=== PATIENT | female | born 1995 | race Caucasian/White ===

== ENCOUNTER 2017-09-08 14:28 | Emergency (ER) | payer BC ==
--- NOTE | 2017-09-08 14:36 | ER Report ---
History and Physical Time Seen By MD: 14:36 HPI/ROS CHIEF COMPLAINT: Back pain HISTORY OF PRESENT ILLNESS: Is is a 22-year-old female who presents to the emergency department for back pain secondary to a fall from a horse. Patient states that she was riding her horse fell off a horse landing on her right talked and injuring her back. Patient states it's very uncomfortable to sit on her tailbone, she also has some abrasions to the right lower back. No numbness or tingling no sciatica. No nausea or vomiting. No head injuries or loss of consciousness. No chest pain or shortness of breath. REVIEW OF SYSTEMS: Constitutional: No fever, no chills. Eyes: No discharge. ENT: No sore throat. Cardiovascular: No chest pain, no palpitations. Respiratory: No cough, no shortness of breath. Gastrointestinal: No abdominal pain, no vomiting. Genitourinary: No hematuria. Musculoskeletal: As above. Skin: As above. Neurological: No headache. Allergies: Coded Allergies: No Known Drug Allergies (Unverified , 09/08/17) Home Meds No Active Prescriptions or Reported Meds Past Medical/Surgical History The patient has a past medical and surgical history of appendectomy, wisdom teeth extraction. Reviewed Nurses Notes: Yes Constitutional Vital Sign - Last 24 Hours 09/08/17 09/08/17 09/08/17 14:36 17:51 17:56 Temp 98.4 Pulse 91 93 74 Resp 16 16 B/P (MAP) 143/84 129/77 (94) 120/70 (87) Pulse Ox 94 93 97 O2 Delivery Room Air Room Air Room Air Physical Exam General Appearance: The patient is alert, has no immediate need for airway protection and no signs of toxicity. Eyes: Pupils equal and round no pallor or injection. ENT, Mouth: Mucous membranes are moist. Respiratory: There are no retractions, lungs are clear to auscultation. Cardiovascular: Regular rate and rhythm. Gastrointestinal: Abdomen is soft and non tender, no masses, bowel sounds normal. Neurological: Alert and oriented 4. Moving all extremities. Following all commands. No focal neuro deficits. Skin: Abrasion and pain to the right lower back, no crepitus, obvious deformities or retroperitoneal bruising. Musculoskeletal: Neck is supple non tender. Extremities are nontender, nonswollen and have full range of motion. DIFFERENTIAL DIAGNOSIS: After history and physical exam differential diagnosis was considered for contusion, abrasion, compression fracture and coccyx fracture. Medical Decision Making Data Points Laboratory Hematology Test 09/08/17 14:58 Urine Color Straw Urine Clarity Clear Urine pH 6.0 pH (4.8-9.5) Urine Specific [place] 1.004 Urine Protein Negative mg/dL (NEGATIVE) Urine Glucose (UA) Negative mg/dL (NEGATIVE) Urine Ketones Negative mg/dL (NEGATIVE) Urine Blood Negative (NEGATIVE) Urine Nitrite Negative (NEGATIVE) Urine Bilirubin Negative (NEGATIVE) Urine Urobilinogen Negative mg/dL (0.2-1.9) Urine Leukocyte Esterase Negative (NEGATIVE) Urine RBC <1 /HPF (0-2/HPF) Urine WBC <1 /HPF (0-5/HPF) Urine Squamous Epithelial Cells Many /LPF (</=FEW) Urine Bacteria Few /HPF (NONE-FEW) Urine Mucus None /HPF (NONE-FEW) Urine HCG, Qualitative Negative (NEGATIVE) Chemistry Test 09/08/17 14:58 Urine Color Straw Urine Clarity Clear Urine pH 6.0 pH (4.8-9.5) Urine Specific [place] 1.004 Urine Protein Negative mg/dL (NEGATIVE) Urine Glucose (UA) Negative mg/dL (NEGATIVE) Urine Ketones Negative mg/dL (NEGATIVE) Urine Blood Negative (NEGATIVE) Urine Nitrite Negative (NEGATIVE) Urine Bilirubin Negative (NEGATIVE) Urine Urobilinogen Negative mg/dL (0.2-1.9) Urine Leukocyte Esterase Negative (NEGATIVE) Urine RBC <1 /HPF (0-2/HPF) Urine WBC <1 /HPF (0-5/HPF) Urine Squamous Epithelial Cells Many /LPF (</=FEW) Urine Bacteria Few /HPF (NONE-FEW) Urine Mucus None /HPF (NONE-FEW) Urine HCG, Qualitative Negative (NEGATIVE) Urinalysis Test 09/08/17 14:58 Urine Color Straw Urine Clarity Clear Urine pH 6.0 pH (4.8-9.5) Urine Specific [place] 1.004 Urine Protein Negative mg/dL (NEGATIVE) Urine Glucose (UA) Negative mg/dL (NEGATIVE) Urine Ketones Negative mg/dL (NEGATIVE) Urine Blood Negative (NEGATIVE) Urine Nitrite Negative (NEGATIVE) Urine Bilirubin Negative (NEGATIVE) Urine Urobilinogen Negative mg/dL (0.2-1.9) Urine Leukocyte Esterase Negative (NEGATIVE) Urine RBC <1 /HPF (0-2/HPF) Urine WBC <1 /HPF (0-5/HPF) Urine Squamous Epithelial Cells Many /LPF (</=FEW) Urine Bacteria Few /HPF (NONE-FEW) Urine Mucus None /HPF (NONE-FEW) Urine HCG, Qualitative Negative (NEGATIVE) EKG/Imaging Imaging EXAMINATION: CT Lumbar spine without intravenous contrast HISTORY: Fall from horse. Questionable fracture on radiograph. COMPARISON: Radiograph of the lumbar spine from the same day. TECHNIQUE: Axial images were obtained through the lumbar spine without IV contrast administration. Coronal and sagittal reformatted images were obtained from the axial source data. One of the following dose optimization techniques was utilized in the performance of this exam: Automated exposure control; adjustment of the mA and/ or kV according to the patient's size; or use of an iterative reconstruction technique. Specific details can be referenced in the facility's radiology CT exam operational policy. FINDINGS: Alignment: Mild left convex curvature of the lumbar spine. Vertebral bodies: Multiple Schmorl nodes in the lumbar spine. No acute fracture. Posterior elements: No acute fracture. Hardware: None. Disc Spaces: Intervertebral disc heights are maintained. Soft tissues: Negative. Visualized retroperitoneal / abdominal structures: Trace free fluid in the pelvis. IMPRESSION: No acute fracture or dislocation of the lumbar spine. Trace free fluid in the pelvis, physiologic in volume. Report Dictated By: Jasbir Bui MD at 09/08/2017 5:26 PM Report E-Signed By: Jasbir Bui MD at 09/08/2017 5:35 PM WSN:[id number] Location: [facility] Patient: Piotr Pennington : 1995 Visit/Account:[id number] Date of Sevice: 09/08/2017 LUMBAR SPINE 4 VIEWS Given history: fall from horse COMPARISON STUDIES: NONE FINDINGS: Five views lumbar spine including oblique views On the RPO view there is a subtle linear lucency seen through the right pars interarticularis. There is no sclerosis and consequently this may represent an acute nondisplaced fracture rather than pre-existing spondylosis. There are no compression fractures seen. Minimal endplate irregularities likely represented a small Schmorl's nodes. There is mild disc space narrowing at L5 5-S1 which may be developmental or indicative of disc disease. Traumatic disc protrusion cannot be excluded given history. IMPRESSION: Possible nondisplaced fracture through the right L5-S1 pars interarticularis. Consider CT follow-up. Mild L5-S1 disc space narrowing likely developmental or possibly pre-existing disc disease but traumatic disc injury must also be considered given history. Report Dictated By: Abdirizak Soto MD at 09/08/2017 4:34 PM Report E-Signed By: Abdirizak Soto MD at 09/08/2017 4:40 PM WSN:[email or web address] Location: [facility] Patient: Piotr Pennington : 1995 Visit/Account:[id number] Date of Sevice: 09/08/2017 SACROILIAC JOINTS 3 OR > VIEWS HISTORY: fall from horse Additional history: None COMPARISON: None. FINDINGS: Three views of the sacrum including oblique views. SI joints normal. Sacrum appears intact. No fractures identified. IMPRESSION: Normal study Report Dictated By: Abdirizak Soto MD at 09/08/2017 4:31 PM Report E-Signed By: Abdirizak Soto MD at 09/08/2017 4:34 PM WSN:[email or web address] CT Lumbar spine without intravenous contrast HISTORY: Fall from horse. Questionable fracture on radiograph. COMPARISON: Radiograph of the lumbar spine from the same day. TECHNIQUE: Axial images were obtained through the lumbar spine without IV contrast administration. Coronal and sagittal reformatted images were obtained from the axial source data. One of the following dose optimization techniques was utilized in the performance of this exam: Automated exposure control; adjustment of the mA and/ or kV according to the patient's size; or use of an iterative reconstruction technique. Specific details can be referenced in the facility's radiology CT exam operational policy. FINDINGS: Alignment: Mild left convex curvature of the lumbar spine. Vertebral bodies: Multiple Schmorl nodes in the lumbar spine. No acute fracture. Posterior elements: No acute fracture. Hardware: None. Disc Spaces: Intervertebral disc heights are maintained. Soft tissues: Negative. Visualized retroperitoneal / abdominal structures: Trace free fluid in the pelvis. IMPRESSION: No acute fracture or dislocation of the lumbar spine. Trace free fluid in the pelvis, physiologic in volume. Report Dictated By: Jasbri Bui MD at 09/08/2017 5:26 PM Report E-Signed By: Jasbir Bui MD at 09/08/2017 5:35 PM WSN:[id number] ED Course/Re-evaluation ED Course The patient was admitted to room. A history and physical were obtained. Differential diagnoses were considered. An x-ray of the lumbar and sacral area were concerning for an L5-S1 fracture, CT of the lumbar spine was negative for acute fracture. Negative UA. Patient was given 800 mg ibuprofen. I did review the studies with the patient, I did tell her that there is no fracture on the CT. I did offer her a muscle relaxer, she refused at this time said she would take ibuprofen or Tylenol. The patient was instructed to follow-up with her primary care provider for any other concerns. Return to ER for worsening symptoms. Patient had no other questions or concerns at this time discharged home. Decision to Disposition Date: Sep 08, 2017 Decision to Disposition Time: 17:46 Depart Departure Latest Vital Signs Vital Signs Date Time Temp Pulse Resp B/P (MAP) Pulse Ox O2 Delivery O2 Flow Rate FiO2 09/08/17 17:56 74 16 120/70 (87) 97 Room Air 09/08/17 14:36 98.4 Impression: Primary Impression: Fall from horse Additional Impressions: Abrasion of lower back Lower back pain Condition: Improved Disposition: HOME OR SELF-CARE New Scripts No Active Prescriptions or Reported Meds Additional Instructions: Drink plenty of water. Get plenty of rest. Take Ibuprofen or Tylenol as needed for pain. Follow up with your primary care provider as scheduled. Return to the ED for any other concerns or worsening symptoms. Problem Qualifiers Primary Impression: Fall from horse Encounter type: initial encounter Qualified Codes: V80.010A - Animal-rider injured by fall from or being thrown from horse in noncollision accident, initial encounter Additional Impressions: Abrasion of lower back Encounter type: initial encounter Qualified Codes: S30.810A - Abrasion of lower back and pelvis, initial encounter Lower back pain Chronicity: acute Back pain laterality: right Sciatica presence: without sciatica Qualified Codes: M54.5 - Low back pain DANIELLA DOS SANTOSP-MONICA Sep 08, 2017 14:36
[2017-09-08] MEDS ORDERED: IBUPROFEN 800 MG TAB PO ONE (14:45)
--- NOTE | 2017-09-08 16:39 | RADIOLOGY IMAGING REPORT ---
FACILITY: [facility] PATIENT NAME: Piotr Pennington : 1995 MR: [id number] V: [id number] EXAM DATE: ORDERING PHYSICIAN: DANIELLA DOS SANTOS TECHNOLOGIST: Location: [facility] [place] Patient: Piotr Pennington : 1995 Visit/Account:[id number] Date of Sevice: 09/08/2017 SACROILIAC JOINTS 3 OR > VIEWS HISTORY: fall from horse Additional history: None COMPARISON: None. FINDINGS: Three views of the sacrum including oblique views. SI joints normal. Sacrum appears intact. No fra ctures identified. IMPRESSION: Normal study Report Dictated By: Abdirizak Soto MD at 09/08/2017 4:31 PM Report E-Signed By: Abdirizak Soto MD at 09/08/2017 4:34 PM WSN:[email or web address]
--- NOTE | 2017-09-08 16:45 | RADIOLOGY IMAGING REPORT ---
FACILITY: [facility] PATIENT NAME: Piotr Pennington : 1995 MR: [id number] V: [id number] EXAM DATE: ORDERING PHYSICIAN: DANIELLA DOS SANTOS TECHNOLOGIST: Location: [facility] Patient: Piotr Pennington : 1995 Visit/Account:[id number] Date of Sevice: 09/08/2017 LUMBAR SPINE 4 VIEWS Given history: fall from horse COMPARISON STUDIES: NONE FINDINGS: Five views lumbar spine including oblique views On the RPO view there is a subtle linear lucency seen through the right pars interarticularis. There is no sclerosis and consequently this may represent an acute nondisplaced fracture rather than pre-e xisting spondylosis. There are no compression fractures seen. Minimal endplate irregularities likel y represented a small Schmorl's nodes. There is mild disc space narrowing at L5 5-S1 which may be de velopmental or indicative of disc disease. Traumatic disc protrusion cannot be excluded given histor y. IMPRESSION: Possible nondisplaced fracture through the right L5-S1 pars interarticularis. Consider CT follow-u p. Mild L5-S1 disc space narrowing likely developmental or possibly pre-existing disc disease but trauma tic disc injury must also be considered given history. Report Dictated By: Abdirizak Soto MD at 09/08/2017 4:34 PM Report E-Signed By: Abdirizak Soto MD at 09/08/2017 4:40 PM WSN:[email or web address]
--- NOTE | 2017-09-08 17:37 | RADIOLOGY IMAGING REPORT ---
FACILITY: [facility] [place] PATIENT NAME: Piotr Pennington : 1995 MR: [id number] V: [id number] EXAM DATE: ORDERING PHYSICIAN: DANIELLA DOS SANTOS TECHNOLOGIST: [place] [facility] [place]: Piotr Pennington : 1995 Visit/Account:[id number] Date of Sevice: 09/08/2017 EXAMINATION: CT Lumbar spine without intravenous contrast HISTORY: Fall from horse. Questionable fracture on radiograph. COMPARISON: Radiograph of the lumbar spine from the same day. TECHNIQUE: Axial images were obtained through the lumbar spine without IV contrast administration. C oronal and sagittal reformatted images were obtained from the axial source data. One of the following dose optimization techniques was utilized in the performance of this exam: Autom ated exposure control; adjustment of the mA and/or kV according to the patient's size; or use of an i terative reconstruction technique. Specific details can be referenced in the facility's radiology C T exam operational policy. FINDINGS: Alignment: Mild left convex curvature of the lumbar spine. Vertebral bodies: Multiple Schmorl nodes in the lumbar spine. No acute fracture. Posterior elements: No acute fracture. Hardware: None. Disc Spaces: Intervertebral disc heights are maintained. Soft tissues: Negative. Visualized retroperitoneal / abdominal structures: Trace free fluid in the pelvis. IMPRESSION: No acute fracture or dislocation of the lumbar spine. Trace free fluid in the pelvis, physiologic in volume. Report Dictated By: Jasbir Bui MD at 09/08/2017 5:26 PM Report E-Signed By: Jasbir Bui MD at 09/08/2017 5:35 PM WSN:[id number]
[2017-09-08 17:56] VITALS: BP 120/70
== END 2017-09-08 17:54 | disposition home or self-care (01) ==
LOC: ER 14:34
DX: M54.5 Low back pain (principal); S30.810A Abrasion of lower back and pelvis, initial encounter; V80.010A Animal-rider injured by fall from or being thrown from horse in noncollision accident, initial encounter
CPT/HCPCS: 72120; 72131; 72202; 81001; 81025; 99285